=== PATIENT | male | born 1945 | race Caucasian/White ===

== ENCOUNTER 2021-02-24 15:59 | Emergency (ER) | payer OTHER, MEDICARE ==
[2021-02-24] MEDS ORDERED: Lidocaine 1% w/Epinephrine 1:100K 20 ML VIAL ONE (16:47)
[2021-02-24] MEDS ORDERED: Boostrix 0.5 ML (Tdap) VIAL ONE (16:48)
[2021-02-24] MEDS ORDERED: Bacitracin 1 PK ONE (18:19)
== END 2021-02-24 18:05 | disposition home or self-care (01) ==
LOC: ERS 15:59
DX: S01.81XA Laceration without foreign body of other part of head, initial encounter (principal); I10 Essential (primary) hypertension; W01.10XA Fall on same level from slipping, tripping and stumbling with subsequent striking against unspecified object, initial encounter; Z23 Encounter for immunization; Z79.899 Other long term (current) drug therapy
CPT/HCPCS: 12013; 70450; 70486; 72125; 90471; 90715